=== PATIENT | female | born 1960 | race Caucasian/White ===

== ENCOUNTER 2017-07-28 12:07 | Emergency (ER) | payer BC, OTHER ==
[2017-07-28] MEDS ORDERED: Proparacaine 0.5% Ophth Soln 15 ML Bottle EYELF ONE (12:30)
[2017-07-28] MEDS ORDERED: Ketorolac 60 MG/2 ML SDV IM ONE (13:04)
--- NOTE | 2017-07-28 13:06 | EDM.PDOC ---
ED HPI GENERAL MEDICAL PROBLEM - General Chief Complaint: Eye Problems Stated Complaint: FB IN LT EYE Time Seen by Provider: 07/28/17 12:55 Source of Information: Reports: Patient History Limitations: Reports: No Limitations - History of Present Illness INITIAL COMMENTS - FREE TEXT/NARRATIVE: 57-year-old female presents for evaluation treatment foreign-body to the left eye. First appreciated the foreign body yesterday around 1600. States at that time she was working in the field with her . Feels she likely got staw into the right eye. Patient attempted to wash the eye with visine and saline but continues to have symptoms. Reports pain and increased tearing to the left eye. Patient wears glasses but no contacts. Patient reports it has been several years since she saw an eye doctor. Up to date with tetanus. Nursing staff placed proparacaine drops into the left eye upon arrival. This caused her significant discomfort and worsening of her symptoms. I instructed them to have her wash her eye for 15 minutes which improved the symptoms. Treatments [employer]: Reports: Other (see below) Other Treatments [employer]ING [employer]: salilne solution and visine prn Left Eye Pain Score (Numeric/FACES): 9 - Related Data Allergies Allergy/AdvReac Type Severity Reaction Status Date / Time No Known Allergies Allergy Verified 07/28/17 12:16 Home Meds: Home Meds Erythromycin Base [Erythromycin 0.5% Ophth Oint] 3.5 gm EYELF ONETIME #1 tube [Rx] Ketorolac [Acular 0.5% Ophth Soln] 1 ml EYELF QID PRN #1 bottle 07/28/17 [Rx] Past Medical History - Past Health History Medical/Surgical History: Denies Medical/Surgical History Social & Family History - Tobacco Use Smoking Status *Q: Never Smoker - Caffeine Use Caffeine Use: Reports: Coffee - Recreational Drug Use Recreational Drug Use: No ED ROS GENERAL - Review of Systems Review Of Systems: See Below HEENT: Reports: Ear Discharge (increaed tearing from the left eye), Ear Pain ( left) ED EXAM GENERAL W FULL EYE - Physical Exam Exam: See Below Exam Limited By: No Limitations General Appearance: Alert, WD/WN, Moderate Distress (after receiving the proparacaine; after rinsing the eye she was significantly more calm) Eye Exam: Left Eye: Conjunctival Injection, Corneal Abrasion (patinet refused fluorcein after problems wiht the proparacaine. pateint was evaluated with the slit lamp; she appreas to have lacerations to her cornea and her conjunctiva), Bilateral Eye: EOMI, PERRL, Other (upper and lower lids inverted for exam upper lid appreas to have lacerations to the inside; no foreign material identified) Eyelids: Left: Edema (small laceartions present to the upper lid; no foreign material found), Lid Everted for Exam Conjunctiva & Sclera: Left: Injected Cornea Exam: Left: Corneal Abrasion Extraocular Movements: Bilateral: Intact Pupils: Normal Accommodation Pupillary Size: Bilateral: 5 mm Pupillary Reaction: Bilateral: Brisk Anterior Chamber: Bilateral: Normal Appearance Ears: Normal External Exam Nose: Normal Inspection Throat/Mouth: Normal Inspection, Normal Voice, No Airway Compromise Neck: Normal Inspection Respiratory/Chest: No Respiratory Distress Neurological: Alert, Oriented, Normal Cognition Psychiatric: Anxious, Tearful (initally) Skin Exam: Warm, Dry, Normal Color Course - Vital Signs Last Recorded V/S: Last Vital Signs Temp 36.7 C 07/28/17 12:27 Pulse 68 07/28/17 12:27 Resp 20 07/28/17 12:27 BP 160/91 H 07/28/17 12:27 Pulse Ox 100 07/28/17 12:27 - Orders/Labs/Meds Meds: Medications Discontinued Medications Generic Name Dose Route Start Last Admin Trade Name Brenda PRN Reason Stop Dose Admin Ketorolac Tromethamine 30 mg 07/28/17 13:04 07/28/17 13:27 Toradol IM 07/28/17 13:05 30 mg ONETIME ONE Administration Proparacaine HCl 1 ml 07/28/17 12:30 07/28/17 12:30 Proparacaine 0.5% Ophth Soln EYELF 07/28/17 12:31 1 drop ONETIME ONE Administration - Re-Assessments/Exams Free Text/Narrative Re-Assessment/Exam: 07/28/17 15:10 I believe she has a corneal abrasion to the left eye. Unfortunately she would not allow investigation with flurocein due to problems with the proparacaine. I will have her follow-up with her eye doctor this week. Her pain improved with the toradol. I will have her start erythromycin ointment. Discharge instructions as documented. Departure - Departure Time of Disposition: 15:18 Disposition: Home, Self-Care 01 Condition: Fair Clinical Impression: Corneal abrasion - Discharge Information Prescriptions: Erythromycin Base [Erythromycin 0.5% Ophth Oint] 3.5 gm EYELF ONETIME #1 tube Ketorolac [Acular 0.5% Ophth Soln] 1 ml EYELF QID PRN #1 bottle PRN Reason: Pain Instructions: Corneal Abrasion, [id number] Referrals: Alina Zaldivar MD [Primary Care Provider] - Forms: ED Department Discharge Additional Instructions: 1 cm ribbon to the left lower lid 4 times a day 7 days. Acular eyedrops 1 drop to the left eye 4 times a day as needed for pain relief. Recommend using a cool compress to the eye. May take [id number] Tylenol or motrin as needed for additional pain relief. Please return to the ER if your symptoms change or worsen. Contact your eye doctor and follow up with them as soon as you're able to.
== END 2017-07-28 15:30 | disposition home or self-care (01) ==
LOC: JD.ED 12:07
DX: S01.112A Laceration without foreign body of left eyelid and periocular area, initial encounter (principal); S05.02XA Injury of conjunctiva and corneal abrasion without foreign body, left eye, initial encounter; W45.8XXA Other foreign body or object entering through skin, initial encounter
CPT/HCPCS: 96372; 99283; J1885

== ENCOUNTER 2017-08-03 18:56 | Emergency (ER) | payer BC ==
--- NOTE | 2017-08-03 20:22 | EDM.PDOC ---
ED HPI GENERAL MEDICAL PROBLEM - General Chief Complaint: Lower Extremity Injury/Pain Stated Complaint: RIGHT KNEE INJURY Time Seen by Provider: 08/03/17 19:17 Source of Information: Reports: Patient History Limitations: Reports: No Limitations - History of Present Illness INITIAL COMMENTS - FREE TEXT/NARRATIVE: This is a 57-year-old female. This evening she apparently was carrying a metal toke of some sort and had severe pain in her right knee and it gave way and she fell. She gives a history over the last several weeks of periodic right knee swelling and pain. She denies any recent history of trauma to the knee or unusual incident that might have injured the knee. She says her left knee also swells periodically she's had a cortisone shot in her left knee but never her right knee. She complains of pain in the knee itself and she says it feels like the muscle is weak. When she fell she did not injure anything else. Right Knee Pain Score (Numeric/FACES): 10 - Related Data Allergies Allergy/AdvReac Type Severity Reaction Status Date / Time No Known Allergies Allergy Verified 08/03/17 19:06 Home Meds: Home Meds Erythromycin Base [Erythromycin 0.5% Ophth Oint] 3.5 gm EYELF ONETIME #1 tube [Rx] Ketorolac [Acular 0.5% Ophth Soln] 1 ml EYELF QID PRN #1 bottle 07/28/17 [Rx] Past Medical History - Past Health History Medical/Surgical History: Denies Medical/Surgical History - Infectious Disease History Infectious Disease History: Reports: Chicken Pox Social & Family History - Tobacco Use Smoking Status *Q: Never Smoker Second Hand Smoke Exposure: No - Caffeine Use Caffeine Use: Reports: Coffee - Recreational Drug Use Recreational Drug Use: No Review of Systems - Review of Systems Review Of Systems: See Below Constitutional: Reports: No Symptoms Eyes: Reports: No Symptoms Ears: Reports: No Symptoms Nose: Reports: No Symptoms Mouth/Throat: Reports: No Symptoms Respiratory: Reports: No Symptoms Cardiovascular: Reports: No Symptoms GI/Abdominal: Reports: No Symptoms Genitourinary: Reports: No Symptoms Musculoskeletal: Reports: Other (Knee pain) Skin: Reports: No Symptoms Neurological: Reports: No Symptoms Psychiatric: Reports: No Symptoms ED EXAM, GENERAL - Physical Exam Exam: See Below Exam Limited By: No Limitations General Appearance: Alert, WD/WN, Mild Distress Eye Exam: Bilateral Eye: Normal Inspection Ears: Normal External Exam Nose: Normal Inspection Throat/Mouth: Normal Inspection, Normal Lips, Normal Voice Head: Normocephalic Neck: Supple Respiratory/Chest: No Respiratory Distress, Lungs Clear Cardiovascular: Regular Rate, Rhythm, No Murmur Back Exam: Full Range of Motion Extremities: Other (Left lower extremity she has no complaints, right lower extremity she's little bit tender over the medial patellar area, the patella tibial tendons intact the kneecap appears to be intact and the quadriceps and the tendon to the patella are intact, she is able to extend her lower extremity though it is painful to do so, she has a negative anterior and posterior drawer sign without pain, she has mild tenderness over the lateral collateral ligament and also tenderness over the lateral joint line and minimal tenderness over the medial joint line, neurovascular is intact distally, there is no significant effusion noted of the right knee presently) Neurological: Alert, Oriented Psychiatric: Normal Affect, Normal Mood Skin Exam: Warm, Dry Course - Vital Signs Last Recorded V/S: Last Vital Signs Temp 98.1 F 08/03/17 19:07 Pulse 64 08/03/17 19:07 Resp 16 08/03/17 19:07 BP 158/79 H 08/03/17 19:07 Pulse Ox 100 08/03/17 19:07 - Orders/Labs/Meds Orders: Active Orders 24 hr Category Date Time Status Knee Min 4V Rt [CR] Stat Exams 08/03/17 19:47 Taken - Radiology Interpretation Free Text/Narrative:: Right knee x-ray showed no acute fractures, there was some degenerative changes noted as well as maybe a slight effusion - Re-Assessments/Exams Free Text/Narrative Re-Assessment/Exam: 08/03/17 21:05 I spoke to the patient regarding the right knee x-ray. There are no fractures noted there might be a slight effusion noted. We discussed that if her symptoms continue she needs to follow-up with her family doctor and get an MRI of her right knee. Departure - Departure Time of Disposition: 21:06 Disposition: Home, Self-Care 01 Condition: Good Clinical Impression: Derangement of lateral meniscus of right knee Sprain of right knee Qualifiers: Encounter type: initial encounter Involved ligament of knee: lateral collateral ligament Qualified Code(s): S83.421A - Sprain of lateral collateral ligament of right knee, initial encounter - Discharge Information Instructions: Knee Sprain, [id number] Referrals: Alina Zaldivar MD [Primary Care Provider] - Forms: ED Department Discharge Additional Instructions: Use the knee immobilizer when you're up and about but you may take it off at nighttime to sleep, ice down the right knee on and off every couple of hours for the next 24 hours, use Tylenol or ibuprofen or Aleve as needed for the pain and the soreness, use your crutches when you're up and do not bear weight on that right knee, follow-up with your family doctor this week for recheck and if continued symptoms you might need an MRI of your right knee, return to the ER if needed - My Orders Last 24 Hours: My Active Orders 08/03/17 19:47 Knee Min 4V Rt [CR] Stat - Assessment/Plan Last 24 Hours: My Active Orders 08/03/17 19:47 Knee Min 4V Rt [CR] Stat
--- NOTE | 2017-08-05 09:55 | CR ---
Right knee: Four views of the right knee were obtained. Comparison: No prior knee study. Medial and lateral joint spaces are preserved. Small osteophytes are noted off the patella. No joint effusion is seen. No acute fracture is seen. Slight spurring is noted at the attachment of the anterior cruciate ligament to the tibial spines believed to be due to stress reaction. Impression: 1. Incidental findings as noted above. Nothing acute is appreciated. Diagnostic code #2
== END 2017-08-03 21:15 | disposition home or self-care (01) ==
LOC: JD.ED 18:56
DX: S83.421A Sprain of lateral collateral ligament of right knee, initial encounter (principal); W19.XXXA Unspecified fall, initial encounter
CPT/HCPCS: 73564-26-RT; 73564-RT; 99283

== ENCOUNTER 2023-01-25 15:33 | Emergency (ER) | payer MEDICAID ==
[2023-01-25] MEDS ORDERED: methylPREDNISolone Sodium Succinate 125 MG/2 ML SDV IM ONE (16:04)
[2023-01-25] MEDS ORDERED: HYDROmorphone 0.5 MG/0.5 ML Syringe IM ONE (16:04)
== END 2023-01-25 17:39 | disposition home or self-care (01) ==
LOC: JD.ED 15:33
DX: M16.11 Unilateral primary osteoarthritis, right hip (principal); Z88.8 Allergy status to other drugs, medicaments and biological substances; X50.9XXA Other and unspecified overexertion or strenuous movements or postures, initial encounter
CPT/HCPCS: 73502; 96372; 99283; J1170; J2930

== ENCOUNTER 2023-02-21 07:00 | Day surgery (SDC) | payer MEDICAID ==
[~2023-02-21 07:00] MED LIST: HYDROmorphone 0.5 MG/0.5 ML Syringe IVPUSH PRN; Lactated Ringers 1,000 ML IV SCH; Lidocaine 1%/Sod Bicarbonate in NS 8.4% 1 ML Syringe IDERM PRN; Morphine 8 MG, EPINEPHrine 0.3 MG, Cefuroxime 750 MG, Ketorolac 30 MG, Sodium Chloride ... PRN; Ondansetron 4 MG/2 ML SDV IVPUSH PRN; Sodium Chloride 0.9% 10 ML Syringe FLUSH PRN; Sodium Chloride 0.9% 10 ML Syringe FLUSH SCH; fentaNYL 100 MCG/2 ML SDV IVPUSH PRN
[2023-02-21] MEDS ORDERED: Ondansetron 4 MG/2 ML SDV IVPUSH PRN (07:52)
[2023-02-21] MEDS ORDERED: HYDROmorphone 0.5 MG/0.5 ML Syringe IVPUSH PRN (07:52)
[2023-02-21] MEDS ORDERED: fentaNYL 100 MCG/2 ML SDV IVPUSH PRN (07:52)
[2023-02-21] MEDS ORDERED: Midazolam 1 MG/ML 2 ML SDV ONE (08:10)
[2023-02-21] MEDS ORDERED: ceFAZolin 2 GM Vial ONE (08:11)
[2023-02-21] MEDS ORDERED: Lidocaine 1% 2 ML ONE (08:11)
[2023-02-21] MEDS ORDERED: fentaNYL 100 MCG/2 ML SDV ONE (08:11)
[2023-02-21] MEDS ORDERED: Propofol 200 MG/20 ML SDV ONE ×2 (08:11→09:54)
[2023-02-21] MEDS ORDERED: Tranexamic Acid 1,000 MG/10 ML Vial ONE (08:18)
[2023-02-21] MEDS ORDERED: Vancomycin 1 GM SDV ONE (08:18)
[2023-02-21] MEDS ORDERED: Phenylephrine 1% 10 MG/ML SDV ONE (09:53)
[2023-02-21] MEDS ORDERED: ePHEDrine 50 MG/ML SDV ONE (09:53)
[2023-02-21] MEDS ORDERED: Acetaminophen/HYDROcodone 325-5 MG Tab PO PRN (11:47)
[2023-02-21] MEDS ORDERED: Cyclobenzaprine 10 MG Tab PO SCH (13:30)
== END 2023-02-21 14:05 | disposition home or self-care (01) ==
LOC: JD.SDS 07:00
PROVIDERS: ATTEND Orthopaedic Surgery
DX: M16.11 Unilateral primary osteoarthritis, right hip (principal); F32.0 Major depressive disorder, single episode, mild; F41.9 Anxiety disorder, unspecified; K21.9 Gastro-esophageal reflux disease without esophagitis; M19.90 Unspecified osteoarthritis, unspecified site; Z98.51 Tubal ligation status; Z90.710 Acquired absence of both cervix and uterus; Z79.899 Other long term (current) drug therapy; Z88.8 Allergy status to other drugs, medicaments and biological substances
CPT/HCPCS: 0055T; 27130; 36415; 73501; 86850; 86900; 86901; 97116; 97161; A9270; C1713; C1776; J0171; J0690; J0697; J1170; J1885; J2250; J2270; J2370; J2704; J3010; J3370; J7120; 01214; J3490